=== PATIENT | male | born 1945 | race Caucasian/White ===

== ENCOUNTER → 2020-08-18 11:13 | Outpatient (CLI) | payer MEDICARE, OTHER, SELFPAY ==
--- NOTE | 2020-08-18 11:21 | DI.MRI.S_ITS ---
PROCEDURE: MR PELIS WO/W CON INDICATIONS: Malignant neoplasm of prostate TECHNIQUE: Coronal HASTE, axial T1 FSE with fat saturation, 3-plane nonbreath-hold T2 FSE. After the administration of contrast, dynamic axial, delayed axial and coronal VIBE or 2-D FLASH with fat saturation through the pelvis. Optional diffusion weighted imaging and ADC may be performed. COMPARISON: None. FINDINGS: Image quality: Diffusion weighted and dynamic contrast enhanced images are diagnostic. Prostate: Gland size is enlarged measuring 5.9 x 5.2 x 5.5 cm; ellipsoid gland volume is 87.7 mL. There is transitional zone hypertrophy with several BPH nodules, many of which are T2 hypointense. Within the right posterior peripheral zone, there is a somewhat wedge-shaped T1 hyperintensity. Deep to this in the transitional zone, there are patchy areas of T1 hyperintensity. Lesion size(s): Lesion 1: 1.5 x 1.2 x 1.8 cm in transverse, AP, and coronal plane. Lesion 2: 1.5 cm in the AP direction measured in the axial plane Lesion location(s) (sector): Lesion 1: Right posterior transitional zone at the mid gland level Lesion 2: Right lateral transitional zone near the base. Lesion description: Lesion 1: Ovoid with a fairly circumscribed margin Lesion 2: Ovoid with a slightly irregular margin. T2 weighted imaging (T2WI) morphology score: Lesion 1: Two Lesion 2: Two Diffusion weighted imaging (DWI) morphology score: Lesion 1: One Lesion 2: One Dynamic contrast enhancement (DCE): Lesion 1: Absent Lesion 2: Absent Lesion PI-RADS score: Lesion 1: PI-RADS two Lesion 2: PI-RADS two Genitourinary system: Bladder wall thickness is normal. Distal ureters are non distended. T1 hyperintensity in a serpiginous fashion throughout the left seminal vesicles consistent with post biopsy hemorrhage. Bowel and peritoneum: No pathologic free pelvic fluid. Inferior colon and small bowel loops are normal in caliber. Nodes and vessels: No pelvic or inguinal adenopathy by size criteria. Iliac vessels are normal in caliber. Soft tissues: Small fat containing left inguinal hernia. Bones: Marrow demonstrates normal overall signal, without lesions to suggest metastases. IMPRESSION: 1. Prostatomegaly with morphology of benign prostatic hypertrophy. 2. There are two right-sided mid gland and base lesions which are low suspicion for clinically significant cancer, PI-RADS category two. 3. No visible pelvic adenopathy or abnormal osseous enhancement. 4. Post biopsy changes. Dictated by: Marni Jones M.D. on 08/18/2020 at 14:24 Approved by: Marni Jones M.D. on 08/18/2020 at 14:50
== END ==
PROVIDERS: PCP Physician Assistant Medical; Referring Provider Urology; Visit Provider Urology
DX: C61 Malignant neoplasm of prostate (principal)
CPT/HCPCS: 72197

== ENCOUNTER → 2024-05-16 08:04 | Outpatient (CLI) | payer MEDICARE, OTHER, SELFPAY ==
--- NOTE | 2024-05-16 08:05 | DI.MRI.S_ITS ---
PROCEDURE: MR PELVIC PROSTATE PROTOCOL INDICATIONS: 78 y/o M w/ low-risk prostate cancer, please eval TECHNIQUE: Coronal HASTE, axial T1 FSE with fat saturation, 3-plane nonbreath-hold T2 FSE. After the administration of contrast, dynamic axial, delayed axial and coronal VIBE or 2-D FLASH with fat saturation through the pelvis. Diffusion weighted imaging and ADC was performed. COMPARISON: [facility], MR, MR PELVIS WO/W CON, 08/18/2020, 11:30. FINDINGS: Image quality: Diffusion weighted and dynamic contrast enhanced images are diagnostic. Prostate: Gland size is 6.1 x 5.7 x 5.6 cm; ellipsoid gland volume is 101 mL. No significant foci of intrinsic T1 hyperintensity to suggest hemorrhage. Multiple BPH nodules. Lesion 1: Location: Right mid gland peripheral zone. Size: 0.8 x 0.4 cm, (5/13). More conspicuous. T2W signal: Hypointense. DWI signal: Mildly hyperintense. ADC signal: Mildly hypointense. Enhancement: Yes. Extracapsular extension: No. No neurovascular involvement. PI-RADS score: 4 Lesion 2: Location: Right mid gland transitional zone posteriorly. Size: 0.6 x 0.4 cm, (5/14), not significantly changed. T2W signal: Hypointense. DWI signal: Heterogeneous. ADC signal: Heterogeneous. Enhancement: Yes. Extracapsular extension: No. No neurovascular involvement. PI-RADS score: 3 Lesion 3: Location: Right mid gland transitional zone laterally. Size: 1.1 x 1.1 cm, (5/14), not significantly changed. T2W signal: Hypointense. DWI signal: Isointense. ADC signal: Heterogeneous. Enhancement: Yes. Extracapsular extension: No. No neurovascular involvement. PI-RADS score: 3 Genitourinary system: Bladder wall thickness is normal. Distal ureters are non distended. Bowel and peritoneum: No pathologic free pelvic fluid. Inferior colon and small bowel loops are normal in caliber. Focus of susceptibility artifact at the lower rectum. Nodes and vessels: No pelvic or inguinal adenopathy by size criteria. Iliac vessels are normal in caliber. Soft tissues: No inguinal hernias. Bones: Marrow demonstrates normal overall signal, without lesions to suggest metastases. IMPRESSION: 1. Prostatomegaly with multiple BPH nodules. 2. Right mid gland peripheral zone observation measuring 0.8 cm. PI-RADS 4. 3. Right mid gland transitional zone observations measuring 0.6 cm and 1.1 cm. PI-RADS 3. Not significantly changed. 4. No enlarged lymph nodes. Dictated by: Frederick Negrete M.D. on 05/18/2024 at 9:30 Approved by: Frederick Negrete M.D. on 05/18/2024 at 9:56
== END ==
PROVIDERS: PCP Physician Assistant; Referring Provider Urology; Visit Provider Urology
DX: C61 Malignant neoplasm of prostate (principal)
CPT/HCPCS: 72197; A9579